=== PATIENT | female | born 1980 | race Caucasian/White ===

== ENCOUNTER 2019-10-26 21:05 | Inpatient (IN) | payer OTHER ==
[2019-10-26 22:01] LABS: Amphetamine Screen,Urine Not Detected (NotDetected); Barbiturate Screen,Urine Not Detected (NotDetected); Benzodiazepines Screen,Urine Not Detected (NotDetected); Cocaine Screen,Urine Not Detected (NotDetected); Methadone Screen, Urine Not Detected (NotDetected); Opiate Screen,Urine Not Detected (NotDetected); Oxycodone Screen, Urine Not Detected (NotDetected); Phencyclidine Screen,Urine Not Detected (NotDetected); Tricyclic Antidepressant,Urine Not Detected (NotDetected); Urn Cannabinoid Scrn Not Detected (NotDetected)
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
[2019-10-27] MEDS ORDERED: QUEtiapine 50 MG TAB PO STA (00:59)
[2019-10-27] MEDS ORDERED: ONDANSETRON ODT 4 MG TAB PO STA (01:48)
[2019-10-27] MEDS ORDERED: IBUPROFEN 600 MG TAB PO STA (01:48)
[2019-10-27] MEDS ORDERED: diphenhydrAMINE 50 MG CAP PO STA (01:48)
[2019-10-27] MEDS ORDERED: LORazepam 1 MG TAB PO STA ×3 (07:52→15:43)
[2019-10-27] MEDS ORDERED: amLODIPine 5 MG TAB PO STA (07:55)
[2019-10-27 10:04] LABS: Basophils % (A) 0 %; Eosinophils % (A) 0 %; HCT 42.7 % (34.0-46.0); HGB 13.6 gm/dL (11.4-16.0); Lymphocytes # (A) 1.9 k/uL (1.0-4.8); Lymphocytes % (A) 18 %; MCH 26.6 pg (25.0-35.0); MCV 83.2 fL (80.0-100.0); Mean Platelet Volume 8.6; Monocytes # (A) 0.5 k/uL (0-1.0); Monocytes % (A) 4 %; Neutrophils # (A) 8.2 k/uL (1.3-7.7); Neutrophils % (A) 76 %; Platelet Count 256 k/uL (150-450); RBC 5.13 m/uL (3.80-5.40); RDW 14.6 % (11.5-15.5); WBC 10.8 k/uL (3.8-10.6)
[2019-10-27 10:13] LABS: ALT 35 U/L (4-34); AST 45 U/L (14-36); African American GFR (CKD) >90 (>60 ml/min/1.73 sqM); Albumin 4.1 g/dL (3.5-5.0); Alkaline Phosphatase 64 U/L (38-126); Anion Gap 8 mmol/L; Blood Urea Nitrogen 8 mg/dL (7-17); Carbon Dioxide 24 mmol/L (22-30); Chloride 103 mmol/L (98-107); Glucose 163 mg/dL (74-99); Non-African American GFR(CKD) >90 (>60 ml/min/1.73 sqM); Potassium 4.1 mmol/L (3.5-5.1); Sodium 135 mmol/L (137-145); Total Bilirubin 0.7 mg/dL (0.2-1.3); Total Protein 7.1 g/dL (6.3-8.2)
[2019-10-27] MEDS ORDERED: cloNIDine HCL 0.1 MG TAB PO STA ×2 (17:42→19:09)
[2019-10-27] MEDS ORDERED: ZIPRASIDONE 20 MG VIAL IM STA (20:33)
[2019-10-27] MEDS ORDERED: LORazepam 2 MG/ML INJ IM STA (20:33)
--- NOTE | 2019-10-27 21:00 | ED ---
Medical Decision Making - Medical Decision Making The patient has been in the emergency department since yesterday evening. She's had a variable elevation of her blood pressure with poor control. After discussion with the psychiatric department with Dr. Kirk the patient will be admitted to medicine for blood pressure control and psychiatric consult in the morning. - Lab Data Result diagrams: 10/27/19 09:50 10/27/19 09:50 Lab Results 10/26/19 10/27/19 10/27/19 Range/Units 21:30 09:50 09:50 WBC 10.8 H (3.8-10.6) k/uL RBC 5.13 (3.80-5.40) m/uL Hgb 13.6 (11.4-16.0) gm/dL Hct 42.7 (34.0-46.0) % MCV 83.2 (80.0-100.0) fL MCH 26.6 (25.0-35.0) pg MCHC 32.0 (31.0-37.0) g/dL RDW 14.6 (11.5-15.5) % Plt Count 256 (150-450) k/uL Neutrophils % 76 % Lymphocytes % 18 % Monocytes % 4 % Eosinophils % 0 % Basophils % 0 % Neutrophils # 8.2 H (1.3-7.7) k/uL Lymphocytes # 1.9 (1.0-4.8) k/uL Monocytes # 0.5 (0-1.0) k/uL Eosinophils # 0.0 (0-0.7) k/uL Basophils # 0.0 (0-0.2) k/uL Sodium 135 L (137-145) mmol/L Potassium 4.1 (3.5-5.1) mmol/L Chloride 103 (98-107) mmol/L Carbon Dioxide 24 (22-30) mmol/L Anion Gap 8 mmol/L BUN 8 (7-17) mg/dL Creatinine 0.50 L (0.52-1.04) mg/dL Est GFR (CKD-EPI)AfAm >90 (>60 ml/min/1.73 sqM) Est GFR (CKD-EPI)NonAf >90 (>60 ml/min/1.73 sqM) Glucose 163 H (74-99) mg/dL Calcium 9.0 (8.4-10.2) mg/dL Total Bilirubin 0.7 (0.2-1.3) mg/dL AST 45 H (14-36) U/L ALT 35 H (4-34) U/L Alkaline Phosphatase 64 (38-126) U/L Total Protein 7.1 (6.3-8.2) g/dL Albumin 4.1 (3.5-5.0) g/dL Urine Opiates Screen Not Detected (NotDetected) Ur Oxycodone Screen Not Detected (NotDetected) Urine Methadone Screen Not Detected (NotDetected) Ur Propoxyphene Screen Not Detected (NotDetected) Ur Barbiturates Screen Not Detected (NotDetected) U Tricyclic Antidepress Not Detected (NotDetected) Ur Phencyclidine Scrn Not Detected (NotDetected) Ur Amphetamines Screen Not Detected (NotDetected) U Methamphetamines Scrn Not Detected (NotDetected) U Benzodiazepines Scrn Not Detected (NotDetected) Urine Cocaine Screen Not Detected (NotDetected) U Marijuana (THC) Screen Not Detected (NotDetected) Disposition Clinical Impression: Alcohol intoxication, Nayana, Depression Disposition: TRANSFER TO PSYCH HOSP/UNIT Condition: Good Instructions (If sedation given, give patient instructions): Depression (DC) Referrals: None,Stated [Primary Care Provider] - 1-2 days
[2019-10-27] MEDS ORDERED: LORazepam 2 MG/ML INJ IV PRN (21:01)
[2019-10-27] MEDS ORDERED: NALOXONE 0.4 MG/ML 1 ML VIAL IV PRN (21:01)
[2019-10-27] MEDS: SODIUM CHLORIDE 0.9% 1,000 ML IV SCH (21:38)
[2019-10-27] MEDS ORDERED: FLUTICASONE 50MCG/SPRAY NASAL 16GM EA NOSTRIL PRN (22:00)
[2019-10-28] MEDS: QUEtiapine 50 MG TAB PO SCH ×2 (00:51→22:33)
[2019-10-28 07:52] LABS: Basophils % (A) 0 %; Eosinophils # (A) 0.1 k/uL (0-0.7); Eosinophils % (A) 1 %; HCT 43.6 % (34.0-46.0); HGB 13.7 gm/dL (11.4-16.0); Lymphocytes # (A) 1.9 k/uL (1.0-4.8); Lymphocytes % (A) 21 %; MCH 26.7 pg (25.0-35.0); MCHC 31.3 g/dL (31.0-37.0); MCV 85.1 fL (80.0-100.0); Mean Platelet Volume 8.6; Monocytes # (A) 0.4 k/uL (0-1.0); Monocytes % (A) 4 %; Neutrophils # (A) 6.8 k/uL (1.3-7.7); Neutrophils % (A) 73 %; Platelet Count 259 k/uL (150-450); RBC 5.12 m/uL (3.80-5.40); RDW 14.5 % (11.5-15.5); WBC 9.3 k/uL (3.8-10.6)
[2019-10-28 08:01] LABS: ALT 39 U/L (4-34); AST 44 U/L (14-36); African American GFR (CKD) >90 (>60 ml/min/1.73 sqM); Alkaline Phosphatase 61 U/L (38-126); Anion Gap 11 mmol/L; Blood Urea Nitrogen 9 mg/dL (7-17); Calcium 9.1 mg/dL (8.4-10.2); Carbon Dioxide 26 mmol/L (22-30); Chloride 103 mmol/L (98-107); Glucose 128 mg/dL (74-99); Non-African American GFR(CKD) >90 (>60 ml/min/1.73 sqM); Potassium 4.2 mmol/L (3.5-5.1); Sodium 140 mmol/L (137-145); Total Bilirubin 0.6 mg/dL (0.2-1.3); Total Protein 6.9 g/dL (6.3-8.2)
[2019-10-28] MEDS: THIAMINE 100 MG TAB PO SCH (08:37)
[2019-10-28 08:44] LABS: HCG,Qualitative Serum Not Detected
[2019-10-28] MEDS ORDERED: cloNIDine HCL 0.1 MG TAB PO SCH (09:00)
[2019-10-28] MEDS ORDERED: cloNIDine HCL 0.1 MG TAB PO STA (10:15)
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
[2019-10-28] MEDS: SODIUM CHLORIDE 0.9% 1,000 ML IV SCH (11:54)
[2019-10-28] MEDS: MONTELUKAST 10 MG TAB PO SCH (12:19)
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
[2019-10-28] MEDS ORDERED: IBUPROFEN 600 MG TAB PO PRN (17:28)
[2019-10-28] MEDS ORDERED: LORazepam 2 MG/ML INJ IM PRN (17:45)
[2019-10-28] MEDS ORDERED: MONTELUKAST 10 MG TAB PO SCH (21:00)
[2019-10-28] MEDS: cloNIDine HCL 0.2 MG TAB PO SCH (22:26)
[2019-10-28] MEDS: amLODIPine 10 MG TAB PO SCH (22:26)
[2019-10-29] MEDS: THIAMINE 100 MG TAB PO SCH (08:50)
[2019-10-29] MEDS: amLODIPine 10 MG TAB PO SCH (08:50)
[2019-10-29] MEDS: MONTELUKAST 10 MG TAB PO SCH (08:50)
[2019-10-29] MEDS: cloNIDine HCL 0.2 MG TAB PO SCH ×2 (08:50→20:27)
[2019-10-29] MEDS: LORazepam 2 MG/ML INJ IM PRN (10:43)
[2019-10-29] MEDS: QUEtiapine 50 MG TAB PO SCH (20:27)
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
[2019-10-30] MEDS: LORazepam 2 MG/ML INJ IM PRN (00:07)
[2019-10-30] MEDS ORDERED: hydrALAZINE HCL 25 MG TAB PO SCH (09:00)
[2019-10-30] MEDS: cloNIDine HCL 0.2 MG TAB PO SCH ×2 (09:08→21:04)
[2019-10-30] MEDS: amLODIPine 10 MG TAB PO SCH (09:08)
[2019-10-30] MEDS: THIAMINE 100 MG TAB PO SCH (09:09)
[2019-10-30] MEDS: MONTELUKAST 10 MG TAB PO SCH (09:09)
[2019-10-30] MEDS ORDERED: diphenhydrAMINE 25 MG CAP PO PRN ×3 (19:23→23:32)
[2019-10-30] MEDS: QUEtiapine 50 MG TAB PO SCH (21:04)
[2019-10-30 23:55] VITALS: TEMP 97.9
[2019-10-31] MEDS: LORazepam 2 MG/ML INJ IM PRN (04:46)
[2019-10-31 09:16] VITALS: BP 115/89; PULSE 102; RESP 18
[2019-10-31] MEDS: MONTELUKAST 10 MG TAB PO SCH (09:17)
[2019-10-31] MEDS: amLODIPine 10 MG TAB PO SCH (09:17)
[2019-10-31] MEDS: THIAMINE 100 MG TAB PO SCH (09:17)
[2019-10-31] MEDS: cloNIDine HCL 0.2 MG TAB PO SCH (09:17)
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
== END 2019-10-31 16:31 | DRG 305 ==
LOC: EC 21:05 → 4SSUR 10-27 21:01 → OBSVTOIN 10-30 08:04
PROVIDERS: ADMIT Internal Medicine; ATTEND Internal Medicine
DX: I16.0 Hypertensive urgency (principal); I10 Essential (primary) hypertension; F10.129 Alcohol abuse with intoxication, unspecified; F17.200 Nicotine dependence, unspecified, uncomplicated; E66.01 Morbid (severe) obesity due to excess calories; F41.9 Anxiety disorder, unspecified; G47.00 Insomnia, unspecified; R74.8 Abnormal levels of other serum enzymes; F32.9 Major depressive disorder, single episode, unspecified; Z11.59 Encounter for screening for other viral diseases; Z88.0 Allergy status to penicillin; Z88.1 Allergy status to other antibiotic agents; Z88.8 Allergy status to other drugs, medicaments and biological substances; Z91.410 Personal history of adult physical and sexual abuse; Z79.899 Other long term (current) drug therapy
CPT/HCPCS: 36415; 80053; 80306; 84703; 85025; 87635; 96372; 99284; 99285